=== PATIENT | male | born 1995 | race Caucasian/White ===

== ENCOUNTER 2018-01-24 08:29 | Day surgery (SDC) | payer OTHER ==
[2018-01-24] MEDS ORDERED: MIDAZOLAM 1 MG/ML 2 ML INJ ×2 (10:29→11:14)
[2018-01-24] MEDS ORDERED: FENTAnyl 50 MCG/ML VIAL ×4 (10:29→14:41)
[2018-01-24] MEDS ORDERED: ROPIVACAINE 0.5 % 30 ML VIAL (11:01)
[2018-01-24] MEDS ORDERED: SUCCINYLCHOLINE CHLORIDE 100 MG/5 ML SYG IV (11:13)
[2018-01-24] MEDS ORDERED: PROPOFOL 20 ML (11:13)
[2018-01-24] MEDS ORDERED: ROCURONIUM 50 MG INJ (11:13)
[2018-01-24] MEDS ORDERED: GLYCOPYRROLATE 0.4 MG INJ (11:49)
[2018-01-24] MEDS ORDERED: NEOSTIGMINE 3 MG/3 ML SYRINGE (11:49)
[2018-01-24] MEDS ORDERED: ACETAMINOPHEN 1000MG/100ML IV 100 ML (11:49)
[2018-01-24] MEDS: ROPIVACAINE 0.5 % 30 ML VIAL (12:19)
[2018-01-24] MEDS: POLYMYXIN/BACITRACIN 1L IRRIG (12:19)
[2018-01-24] MEDS ORDERED: LABETALOL HCL 20MG INJ IV (13:00)
[2018-01-24] MEDS ORDERED: DIPHENHYDRAMINE 50 MG INJ IV (13:00)
[2018-01-24] MEDS ORDERED: MEPERIDINE 25 MG INJ IV (13:00)
[2018-01-24] MEDS ORDERED: METOCLOPRAMIDE 10 MG INJ IV (13:00)
[2018-01-24] MEDS ORDERED: HYDROmorphONE (0.2 MG/ML) 10ML SYG IV (13:00)
[2018-01-24] MEDS ORDERED: FENTAnyl 50 MCG/ML VIAL IV (13:00)
[2018-01-24] MEDS ORDERED: hydrALAzine 20 MG INJ IV (13:00)
[2018-01-24] MEDS ORDERED: morphine (1 MG/ML) 10ML SYRINGE IV ×2 (13:00)
[2018-01-24] MEDS ORDERED: KETOROLAC 30 MG INJ IV (13:00)
[2018-01-24] MEDS ORDERED: CEFAZOLIN 1 GM INJ (13:52)
[2018-01-24] MEDS ORDERED: NEOMYC/POLYMYX/BACIT 30 GM OINT (15:00)
[2018-01-24] MEDS ORDERED: KETOROLAC 30 MG INJ (15:12)
[2018-01-24] MEDS: HYDROmorphONE (0.2 MG/ML) 10ML SYG IV (15:35)
[2018-01-24] MEDS: ONDANSETRON 4 MG INJ IV (15:35)
[2018-01-24] MEDS: FENTAnyl 50 MCG/ML VIAL IV (15:36)
[2018-01-24] MEDS ORDERED: morphine 2 MG INJ IV (16:30)
== END 2018-01-24 18:10 | disposition home or self-care (01) ==
LOC: SDS 08:29
DX: S83.511A Sprain of anterior cruciate ligament of right knee, initial encounter (principal); S83.281A Other tear of lateral meniscus, current injury, right knee, initial encounter; F17.200 Nicotine dependence, unspecified, uncomplicated; X58.XXXA Exposure to other specified factors, initial encounter; Y93.89 Activity, other specified; Y92.89 Other specified places as the place of occurrence of the external cause; Y99.8 Other external cause status
CPT/HCPCS: 29881; 73560; 82306